=== PATIENT | male | born 1980 | race Caucasian/White ===

== ENCOUNTER → 2019-01-31 | Outpatient (CLI) | payer BC | LOC: OD 12:33 | PROVIDERS: ATTEND Otolaryngology | DX: J30.9 Allergic rhinitis, unspecified (principal) | CPT/HCPCS: 36415; 82785; 86003 ==

== ENCOUNTER → 2019-01-31 | Outpatient (CLI) | payer BC ==
--- NOTE | 2019-01-31 19:46 | RADIOLOGY REPORT (SQ) ---
EXAM DESCRIPTION: CT SINUSES FOR ENT COMPLETED DATE/TIME: 01/31/2019 5:52 pm REASON FOR STUDY: (J33.8)OTHER POLYP OF SINUS J33.8 OTHER POLYP OF SINUS COMPARISON: None. TECHNIQUE: Noncontrast scanning through the paranasal sinuses using bone algorithm. Reconstructed MPR images reviewed. All images stored on PACS. All CT scanners at this facility use dose modulation, iterative reconstruction, and/or weight based d osing when appropriate to reduce radiation dose to as low as reasonably achievable (ALARA). [facility]: Dose Right [facility]: CareDose [facility]: Dose Right [facility]: Teradose 4D [facility]: [employer] RADIATION DOSE: 47.5mGy. LIMITATIONS: None. FINDINGS: Right sinuses and drainage pathways: Post-surgical changes: Surgical widening of the maxillary sinus outlet, resection of anterior ethmoid septa Frontal sinus: Clear Frontoethmoidal Recess: Opacified Anterior Ethmoid Sinuses: Mucous membrane thickening Posterior Ethmoid Sinuses: Mucous membrane thickening Sphenoid Sinus: Mucous membrane thickening Sphenoethmoidal Recess: Opacified Maxillary Sinus: Circumferential mucous membrane thickening. Dependent air-fluid level Ostiomeatal Complex: Surgically widened Left Sinuses and Drainage Pathways: Post-Surgical Changes: Surgical widening of the maxillary sinus outlet, resection of anterior ethmoi d septa Frontal Sinus: Mucous membrane thickening floor left frontal sinus Frontoethmoidal Recess: Opacified Anterior Ethmoid Sinuses: Mucous membrane thickening Posterior Ethmoid Sinuses: Mucous membrane thickening Sphenoid Sinus: Mucous membrane thickening Sphenoethmoidal Recess: Opacified Maxillary Sinus: Circumferential mucous membrane thickening with dependent air-fluid level Ostiomeatal Complex: Surgically widened Right Olfactory Fossa: No polyps. Left Olfactory Fossa: No polyps. Middle Turbinate Mechelle Bull[place]: No. Paradoxical Middle Turbinate: No. Atelectatic Uncinated Process: No. Frontal Ned Cell Type I: No. Frontal Ned Cell Type II: No. Interfrontal Sinus Septal Cell: None. Supra-Orbital Ethmoid: None. Frontal Bullar Cell: None. Suprabullar Bullar Cell: None. Sphenoethmoidal (Onodi) Cell: None. Pneumatization of the Anterior Clinoid Processes: No Pneumatized pterygoid recess of the sphenoid sinus: On the right Hypoplastic Maxillary Sinus: None. Osteoneogenesis: None. Bone Dehiscence:None. Nasal Cavity: Normal. Nasal Septum: Midline Anatomic Variants: Right Vidian Canal: Normal. Left Vidian Canal: Normal. IMPRESSION: Diffuse inflammatory changes. Surgical widening of the bilateral maxillary outlets and resection of anterior ethmoid septa. TECHNICAL DOCUMENTATION: JOB ID: [id number] Quality ID # [id number]: Final reports with documentation of one or more dose reduction techniques (e.g., Au tomated exposure control, adjustment of the mA and/or kV according to patient size, use of iterative reconstruction technique) 2010 [employer]- All Rights Reserved Reading location - IP/workstation name: [email or web address]
== END ==
LOC: RAD 17:25
PROVIDERS: ATTEND Otolaryngology
DX: J33.8 Other polyp of sinus (principal)
CPT/HCPCS: 70486

== ENCOUNTER → 2020-02-14 | Outpatient (CLI) | payer BC ==
[~2020-02-14] MED LIST: COVID-19 VACCINE (PFIZER)/PF 30 MCG/0.3 ML VIAL IM ONE; EPINEPHRINE INJ/PF 1 MG/1 ML AMPULE IM PRN
== END ==
LOC: EMPHEALTH 07:40
PROVIDERS: ATTEND Internal Medicine
DX: Z23 Encounter for immunization (principal)
CPT/HCPCS: 91300

== ENCOUNTER → 2020-03-15 | Outpatient (CLI) | payer BC | LOC: EMPHEALTH 07:21 | PROVIDERS: ATTEND Internal Medicine | DX: Z23 Encounter for immunization (principal) | CPT/HCPCS: 91300 ==